=== PATIENT | male | born 1965 | race Caucasian/White ===

== ENCOUNTER 2020-09-23 07:47 | Emergency (ER) | payer OTHER, SELFPAY ==
[2020-09-23 08:05] VITALS: BP 144/91; PULSE 73; RESP 16; TEMP 36.9; O2SAT 98; BMI 27.4
--- NOTE | 2020-09-23 08:40 | XR_ITS ---
EXAMINATION: XR HIP, LEFT CLINICAL INFORMATION: Left hip pain. COMPARISON: None TECHNIQUE: Two views of the left hip. FINDINGS: Minimal left hip degenerative joint changes are seen. There is no acute fracture or dislocation. The soft tissues are unremarkable. XR/XR hip LT min 2V IMPRESSION: Minimal left hip degenerative joint changes. No acute abnormality.
--- NOTE | 2020-09-23 08:40 | XR_ITS ---
EXAMINATION: XR LUMBOSACRAL SPINE CLINICAL INFORMATION: Pain COMPARISON: None TECHNIQUE: Three views of the lumbosacral spine. FINDINGS: There may be a transitional vertebral body segment or 6 lumbar-type vertebral bodies. For the purposes of this dictation the first nonrib-bearing vertebral body is designated as L1 with the transitional segment inferiorly. There is curvature of the lumbar spine to the left. Bone alignment is otherwise normal. No fracture or dislocation is seen. There is evidence of degenerative disc disease at L1-L2. There is lower lumbar spine facet arthritis. Paraspinal soft tissues are unremarkable. XR/XR lumbar spine 2-3V IMPRESSION: Probable transitional vertebral body segment. Mild curvature of the spine to the left. Degenerative disc disease at L1-L2 and lower lumbar spine facet arthritis.
[2020-09-23] MEDS: Ketorolac Tromethamine 60 MG/2 ML VIAL IM (08:59)
--- NOTE | 2020-09-23 09:02 | ED.LOWEXIN ---
HPI - Extremity Injury (Lower) General Chief Complaint: Extremity Injury, Lower Stated Complaint: LEFT LEG PAIN Time Seen by Provider: 09/23/20 08:33 Source: patient and tube drawer Mode of arrival: ambulatory Limitations: language barrier History of Present Illness HPI Narrative: 54-year-old male here with left hip and low back pain with radiation down the left leg for 2 months. No injury or trauma. The patient tells me he has had 3 ED visits and has tried different medications but he does not know the names of them. He tells me he has seen his doctor once and is currently in physical therapy. He was feeling better until yesterday when he did some increased exercises and stretches physical therapy. Last evening he developed increasing pain and was unable to sleep through the night. He denies any numbness or tingling. The pain is worsened with weight-bearing and walking. He uses a cane at baseline. There was never any injury or trauma. Severity: moderate Relieving factors: nothing Exacerbating factors: nothing Other symptoms: none Related Data Previous Rx's Medication Instructions Recorded lidocaine [Lidoderm] 1 patch TOPICAL DAILY #15 ea 09/23/20 methocarbamol [Robaxin-750] 750 mg PO Q8H #20 tab 09/23/20 naproxen 500 mg PO BID PRN #30 tab 09/23/20 Allergies Allergy/AdvReac Type Severity Reaction Status Date / Time No Known Allergies Allergy Intermediate UNKNOWN Unverified 07/20/20 19:52 [NO KNOWN ALLERGIES] Review of Systems Review of Systems: Yes all other systems are reviewed and are negative Constitutional: Constitutional: Reports no additional constitutional complaints, Denies body ache(s), Denies chills, Denies fever(s), Denies headache(s) and Denies weakness Eyes: Eyes: Reports no additional eye complaints and Denies change in vision ENT: Reports system reviewed and no additional complaints, except as documented, Denies dizziness, Denies headache(s), Denies nasal congestion, Denies nasal discharge and Denies neck pain Cardiovascular: Cardiovascular: Reports no additional cardiovascular complaints, Denies chest pain, Denies leg edema and Denies dyspnea Respiratory: Respiratory: Reports no additional respiratory complaints, Denies cough and Denies dyspnea Gastrointestinal: Gastrointestinal: Reports no additional gastrointestinal complaints, Denies abdominal pain, Denies diarrhea, Denies nausea and Denies vomiting Genitourinary: Genitourinary: Denies urinary incontinence Musculoskeletal: Musculoskeletal: Reports no additional musculoskeletal complaints, Reports back pain, Denies arthralgias, Denies joint swelling, Denies neck pain, Denies numbness and Denies tingling Comments: Joint pain Integumentary/Breasts: Skin/Breast: Reports system reviewed and no additional complaints, except as docu and Denies rash Neurologic: Reports system reviewed and no additional complaints, except as documented, Denies Abnormal speech present, Denies dizziness, Denies headache(s), Denies numbness, Denies tingling and Denies weakness [facility] Past Medical History Attestation statement: The following information was validated with the patient. Source: obtained from family and nursing notes reviewed Medical History No known health problems Surgical History H/O hernia repair Social History Social History Advance Directives: No Advance Directives Information Provided: Yes Physical Exam Vital Signs: Vital Signs: Last Vital Signs Temp 98.4 F 09/23/20 08:05 Pulse 73 09/23/20 08:05 Resp 16 09/23/20 08:05 BP 144/91 H 09/23/20 08:05 Pulse Ox 98 09/23/20 08:05 Body Mass Index 27.4 Const: General: cooperative, healthy appearing, comfortable and no acute distress Orientation/consciousness: patient oriented x3 Limitations: no limitations HENMT: Head: Yes normal to inspection Ears: hearing grossly normal bilaterally General nose exam: Normal external nose present Face and sinus: Yes normal facial exam Mouth: Normal oral and palatal mucosa present Throat: Yes posterior oropharynx normal Eyes: General: appearance normal, both eyes and all related structures Pupils: Equal, round and reactive pupils present Neck: Neck: Yes normal visual inspection Chest: Chest palpation & inspection: normal inspection of the chest Resp: Effort & Inspection: normal respiratory effort Auscultation: clear to auscultation bilaterally Cardio: Rate: regular rate Rhythm: regular rhythm Peripheral pulses: Peripheral pulses 2+ throughout GI: Inspection: Yes normal to inspection Palpation (GI): Soft to palpation and nontender Auscultation: normal bowel sounds Back/Spine/Pelvis: Other: pain over the lumbar spine with no step-offs or deformities. Patient has pain over the left buttocks and left SI joint over the lateral left hip and buttocks. Pain is worsened with straight leg raise on the left side. Thoracic/Lumbar Spine: thoracic and lumbar spine normal to inspection Skin: General skin exam: no rashes or lesions noted Neuro: General: patient oriented x3, Normal light touch and pain sensation, no focal motor deficits and normal sensation to monofilament Cranial nerves: Yes CN's II-XII intact bilaterally and Yes Equal, round and reactive pupils present Cognition (Neuro): normal cognition Speech: No Abnormal speech present Gait exam (Neuro): Normal gait present Motor exam (neuro): 5/5 motor strength present throughout Sensory Exam: Normal double simultaneous stimulation for sensation Deep tendon reflexes (DTR's): Right patellar reflex intensity grade: 2+, Left patellar reflex intensity grade: 2+, Right ankle reflex intensity grade: 2+ and Left ankle reflex intensity grade: 2+ Extrem: General: Yes normal to inspection Course Course Course Narrative: Will check imaging, provide analgesia and reassess. 1000- imaging consistent with a likely slipped versus herniated disc. No neurological deficits or red flag symptoms. The patient is ambulatory and feeling improved after IM Toradol. He can follow-up outpatient with his primary care doctor and Orthopedics. Reviewed worrisome signs and symptoms and when to return to the emergency department. Comfortable with discharge home. MDM - Extremity Injury (Lower) Imaging Data lumbar xray: Radiologist's impression: FINDINGS: There may be a transitional vertebral body segment or 6 lumbar-type vertebral bodies. For the purposes of this dictation the first nonrib-bearing vertebral body is designated as L1 with the transitional segment inferiorly. There is curvature of the lumbar spine to the left. Bone alignment is otherwise normal. No fracture or dislocation is seen. There is evidence of degenerative disc disease at L1-L2. There is lower lumbar spine facet arthritis. Paraspinal soft tissues are unremarkable. XR/XR lumbar spine 2-3V IMPRESSION: Probable transitional vertebral body segment. Mild curvature of the spine to the left. Degenerative disc disease at L1-L2 and lower lumbar spine facet arthritis. hip xray: Attestation: I personally reviewed and interpreted this imaging study as follows: Radiologist's impression: EXAMINATION: XR HIP, LEFT CLINICAL INFORMATION: Left hip pain. COMPARISON: None TECHNIQUE: Two views of the left hip. FINDINGS: Minimal left hip degenerative joint changes are seen. There is no acute fracture or dislocation. The soft tissues are unremarkable. XR/XR hip LT min 2V IMPRESSION: Minimal left hip degenerative joint changes. No acute abnormality. Discharge Plan Discharge Clinical Impression: Lumbar strain, Arthritis Patient Disposition: Home, Self-Care Instructions: Lumbar Disc Herniation (ED), Lower Back Exercises (ED), Arthritis (ED) Prescriptions: New naproxen 500 mg tablet 500 mg PO BID PRN (Reason: pain) Qty: 30 RF: 0 methocarbamol [Robaxin-750] 750 mg tablet 750 mg PO Q8H Qty: 20 RF: 0 lidocaine [Lidoderm] 5 % adhesive patch,medicated 1 patch topical DAILY Qty: 15 RF: 0 Referrals: Chema Britt MD [Physician] - 2 days Physician,Unknown [Primary Care Provider] - 2 days Stand Alone Forms: Work/School Release Interventions: ED Discharge Assessment Last Done: 09/23/20 10:06 Discharge Date/Time: 09/23/20 10:08 Print Language: Sierra Leonean
== END 2020-09-23 10:08 | disposition home or self-care (01) ==
PROVIDERS: Emergency Provider Emergency Medicine
DX: S39.012A Strain of muscle, fascia and tendon of lower back, initial encounter (principal); M47.896 Other spondylosis, lumbar region; M25.552 Pain in left hip; M79.605 Pain in left leg; X58.XXXA Exposure to other specified factors, initial encounter; Y93.9 Activity, unspecified; Y92.89 Other specified places as the place of occurrence of the external cause; Y99.9 Unspecified external cause status; Z79.899 Other long term (current) drug therapy
CPT/HCPCS: 72100; 73502; 96372; 99283; 99284; J1885

== ENCOUNTER → 2020-10-10 14:09 | Outpatient (BNVA) | payer OTHER, SELFPAY | PROVIDERS: Visit Provider Physician Assistant | DX: M53.3 Sacrococcygeal disorders, not elsewhere classified (principal); G89.29 Other chronic pain | CPT/HCPCS: 99202 ==

== ENCOUNTER 2021-02-10 13:13 | Emergency (ER) | payer OTHER, SELFPAY ==
--- NOTE | 2021-02-10 13:53 | PC.NURSE ---
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
[2021-02-10 14:05] VITALS: BP 165/80; PULSE 75; RESP 14; TEMP 36.7; O2SAT 97; BMI 23.6
--- NOTE | 2021-02-10 14:36 | ED_ITS ---
HPI - Animal Bite General Chief Complaint: Skin/Abscess/Foreign Body Stated Complaint: bug bites Time Seen by Provider: 02/10/21 14:02 Source: patient Mode of arrival: ambulatory Limitations: language barrier (Senegalese-speaking) History of Present Illness HPI narrative: 55-year-old male presenting to the ED with complaints of 2 tick bites that he sustained at work on Friday. He reports that his co-worker seen the tick on his right trunk area and removed it immediately. Then he went home and when he took a shower he noticed he had another tick to the left axillary therefore he pulled it out completely. He reports he has mild erythema otherwise denies any additional complaints or concerns at this time. Related Data Previous Rx's Medication Instructions Recorded lidocaine [Lidoderm] 1 patch TOPICAL DAILY #15 ea 09/23/20 methocarbamol [Robaxin-750] 750 mg PO Q8H #20 tab 09/23/20 naproxen 500 mg PO BID PRN #30 tab 09/23/20 doxycycline monohydrate 100 mg PO BID 21 Days #42 cap 02/10/21 Allergies Allergy/AdvReac Type Severity Reaction Status Date / Time No Known Allergies Allergy Intermediate UNKNOWN Unverified 07/20/20 19:52 [NO KNOWN ALLERGIES] Review of Systems Review of Systems: Constitutional : No Fever, No Chills , no body aches, no recent illness Head/Face: No facial swelling, No facial redness ENT/Mouth : No oral/throat swelling, No Hoarseness, No Swallowing Difficulty Eyes: No Eye Pain, No Swelling, No Redness Cardiovascular : No Chest Pain, No SOB, No palpitations Respiratory : No Cough, No Sputum, No Wheezing, No Smoke Exposure, No Dyspnea Gastrointestinal : No Nausea, No Vomiting, No Diarrhea, No abdominal Pain Genitourinary : No Dysuria, No Urinary Frequency, No Hematuria Musculoskeletal : No joint pain, No Myalgias, No Joint Swelling Skin : positive Skin Lesions/tick bites, No rash Neuro : No Weakness, No Numbness, No Headache, No dizziness, No tingling Psych : No Anxiety/Panic, No Depression Heme/Lymph: No Bruising, No Lymphadenopathy Endocrine : No Polyuria, No Polydipsia Denies changes in lotions or detergents. Denies new medications or any changes in medications. Denies drainage from rash. Denies any recent sick contacts or recent travel. Yes all other systems are reviewed and are negative [facility] Past Medical History Attestation statement: The following information was validated with the patient. 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 Blood pressure hypertensive at 165/80. Heart rate normal. Respiration rate normal. Temperature normal. Oxygen saturation normal. Appearance: Alert. Oriented X3. No acute distress. Head: Normal external exam. Normocephalic. Atraumatic. Eyes: PERRLA. EOMI. Conjunctiva and sclera normal. Eyelids normal. ENT: Pharynx normal. Uvula midline. Moist mucous membranes. Neck: Normal inspection. Neck supple. FROM. No adenopathy. Thyroid Normal. No meningeal signs. CVS: Normal heart rate and rhythm. Pulses normal throughout. Respiratory: No respiratory distress. Painless inspiration. Back: Full range of motion noted. Skin: lesion c mild surrounding erythema to right truck and left axillary. No streaking/induration/fluctuance or foreign bodies or tics noted at this time. Otherwise the rest of the Skin is warm and dry. Normal skin color. Normal skin turgor. No rashes/lacerations noted. Extremities: Extremities exhibit normal range of motion. Extremities nontender. Neuro: Oriented X 3. No motor deficit. No sensory deficit. Reflexes normal. Course Course Course Narrative: 55-year-old male with 2 tick bites. No strea jodi/induration/fluctuance or tics noted at this time. Will DC home with antibiotics and instructions to return if any new or worsening symptoms follow- up with primary care provider. MDM - Animal Bite Medical Records Attestation: I reviewed the patient's medical records. Discharge Plan Discharge Clinical Impression: Tick bite Patient Disposition: Home, Self-Care Instructions: Tick Bite (ED) Prescriptions: New doxycycline monohydrate 100 mg capsule 100 mg PO BID 21 Days Qty: 42 RF: 0 No Action naproxen 500 mg tablet 500 mg PO BID PRN (Reason: pain) Qty: 30 RF: 0 methocarbamol [Robaxin-750] 750 mg tablet 750 mg PO Q8H Qty: 20 RF: 0 lidocaine [Lidoderm] 5 % adhesive patch,medicated 1 patch topical DAILY Qty: 15 RF: 0 Referrals: Luisa Unger MD [Primary Care Provider] - 2 days Discharge Date/Time: 02/10/21 14:44 Print Language: Senegalese
== END 2021-02-10 14:44 | disposition home or self-care (01) ==
PROVIDERS: Emergency Provider Emergency Medicine Emergency Medical Services; PCP Internal Medicine
DX: S20.361A Insect bite (nonvenomous) of right front wall of thorax, initial encounter (principal); S40.861A Insect bite (nonvenomous) of right upper arm, initial encounter; W57.XXXA Bitten or stung by nonvenomous insect and other nonvenomous arthropods, initial encounter; F17.200 Nicotine dependence, unspecified, uncomplicated; F12.90 Cannabis use, unspecified, uncomplicated; Y93.89 Activity, other specified; Y92.017 Garden or yard in single-family (private) house as the place of occurrence of the external cause; Y99.0 Civilian activity done for income or pay
CPT/HCPCS: 99283

== ENCOUNTER 2022-09-25 09:33 | Emergency (ER) | payer OTHER, SELFPAY ==
--- NOTE | ~2022-09-25 | XR_ITS ---
EXAMINATION: XR LUMBOSACRAL SPINE CLINICAL INFORMATION: Back pain. COMPARISON: 09/23/[address] scan of the abdomen and pelvis dated 05/14/2020 TECHNIQUE: Three views of the lumbosacral spine. 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 A rudimentary disc is seen at L5-S1. Mild degenerative disc disease and mild grade 1 anterolisthesis are seen without significant change. Sclerotic changes in the superior endplate of L1 is again noted. XR/XR lumbar spine 2-3V IMPRESSION: Transitional anatomy and mild degenerative changes as detailed above without overt acute abnormality or significant change.
[2022-09-25 09:35] VITALS: BP 153/98; PULSE 78; RESP 20; TEMP 36.6; O2SAT 95; BMI 25.7
--- NOTE | 2022-09-25 10:11 | ED_ITS ---
HPI - Back Pain/Injury General Chief Complaint: Back Pain/Injury Stated Complaint: L Leg Pain No Injury Time Seen by Provider: 09/25/22 09:40 Source: patient Mode of arrival: ambulatory Limitations: language barrier (Belarusian-speaking) History of Present Illness HPI Narrative: 56-year-old male who is Bel[place]ian-speaking with a past medical history of chronic back pain/left hip arthritis who has been here in the past for similar complaints and has followed up orthopedic ARIANNA Roberts who is presenting to the emergency department with complaints of acute on chronic lower back/left lower back pain left hip pain radiating to his left leg since yesterday worse today. Reports that he normally takes naproxen and Robaxin and that helps his pain although reports he ran out of the naproxen Robaxin. He denies any recent falls, fevers, chest pain or shortness of breath, abdominal pain, flank pain, dysuria, hematuria, abnormal penile discharge, black or bloody stools, urinary bowel incontinence or retention, saddle anesthesias, IV drug use, recent travel or sick contacts or epidural procedures or any other symptoms complaints or concerns at this time. MD elicited complaint: back pain Pertinent past history: prior back pain and arthritis Onset (ago): day(s) Timing: intermittent Severity: moderate Similar Symptoms Previously: Yes Quality: aching, spasming and throbbing Location: lumbar spine Radiation: left leg below the knee Exacerbating factors: supine positioning, sitting upright, walking and lifting Relieving factors: medication Context: unknown Associated symptoms: denies other symptoms Treatments prior to arrival: other Work related injury: No Related Data Previous Rx's Medication Instructions Recorded lidocaine 5 % topical patch 1 patch topical DAILY #15 ea 09/23/20 (Lidoderm) methocarbamol 750 mg tablet 750 mg PO Q8H #20 tabs 09/23/20 (Robaxin-750) naproxen 500 mg tablet 500 mg PO BID PRN pain #30 tabs 09/23/20 doxycycline monohydrate 100 mg 100 mg PO BID 21 days #42 caps 02/10/21 capsule lidocaine 5 % topical patch 1 patch topical DAILY pain #15 ea 09/25/22 (Lidoderm) methocarbamol 750 mg tablet 750 mg PO Q8H #20 tabs 09/25/22 naproxen 500 mg tablet 500 mg PO BID PRN pain #20 tabs 09/25/22 Allergies Allergy/AdvReac Type Severity Reaction Status Date / Time No Known Allergies Allergy Intermediate UNKNOWN Unverified 07/20/20 19:52 [NO KNOWN ALLERGIES] Review of Systems Review of Systems: Constitutional : No trauma, No Weight loss, No Fever, No Chills, ENT/Mouth : No Hearing loss, No Ear Pain, No Nasal Congestion, No Sinus Pain, No Hoarseness, No sore throat, No Rhinorrhea, No Swallowing Difficulty Cardiovascular : No Chest Pain, No SOB Respiratory : No Cough, No Dyspnea Gastrointestinal : No Nausea, No Vomiting, No Diarrhea, No abdominal Pain, No Hematochezia, No Melena Genitourinary : No Dysuria, No Urinary Frequency, No Hematuria, No Urinary or Bowel Incontinence/retention Musculoskeletal : + Back pain, No neck pain, No joint stiffness, No joint swelling Skin : No Skin Lesions, No rash or signs of infection Neuro : No Weakness, + to LLE radiation, No Numbness, No Paresthesias, No headache, no loss of bowel or bladder incontinence, no saddle anesthesia Denies history of IV drug usage. Yes all other systems are reviewed and are negative PMFSH Past Medical History Attestation statement: The following information was validated with the patient. 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 Blood pressure 153/98. Heart rate normal. Respiration rate normal. Temperature normal. Oxygen saturation normal. Appearance: Alert. Oriented X3. No acute distress. Head: Normal external exam. Normocephalic. Atraumatic. Eyes: PERRLA. EOMI. Conjunctiva and sclera normal. Eyelids normal. ENT: Pharynx normal. Uvula midline. Moist mucous membranes. No trismus noted. No drooling noted. No muffled voice noted. Neck: Normal inspection. Neck supple. FROM. No adenopathy. Thyroid Normal. No meningeal signs. No neck mass noted. CVS: Normal heart rate and rhythm Respiratory: No respiratory distress. Painless inspiration. No accessory muscle usage noted Abdomen: Soft and nontender. No distention noted. No organomegaly noted Back: No CVA tenderness. Full range of motion noted. No obvious deformities, or edema. Mild para-spinal muscular tenderness from lumbar region to coccyx. Full ROM in back and lower extremities. 5/5 strength hip extension/flexion, abduction, adduction. Mild Lumbar pain with hip flexion against resistance. Straight leg raise test negative on right; Straight leg raise test positive on left; EHL motor strength normal bilaterally. No rashes/lesion/induration/fluctuance or signs infection noted. Skin: Skin warm and dry. Normal skin color. Normal skin turgor. No rashes/lesions/lacerations noted. Extremities: No lower extremity edema. Extremities exhibit normal range of motion. Extremities nontender. Neuro: Oriented X 3. No motor deficit. No sensory deficit. Reflexes normal. Patient has a normal steady gait. Course Course Course Narrative: Pt c likely muscular pain, but could be herniated disc. Neuro exam shows no deficits. Not c/w AAA/epidural abscess/dissection. No high risk Hx (Incont, fever, immunosupp, recent surgery/LP, coag, signif trauma, wt loss, puls mass, hx/o Ca, TB, or IVDU) to warrant MRI/CT today. Not c/w Pyelo/UTI/kidney stone/spinal fx. Not cauda equina syndrome. X-ray was ordered in triage. Otherwise no additional x-rays or imaging or labs indicated. If x-ray reveals arthritis which was seen in the last x-ray patient can be DC c meds and f/u. MDM - Back Pain/Injury Medical Records Attestation: I reviewed the patient's medical records. 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 A rudimentary disc is seen at L5-S1. Mild degenerative disc disease and mild grade 1 anterolisthesis are seen without significant change. Sclerotic changes in the superior endplate of L1 is again noted. XR/XR lumbar spine 2-3V IMPRESSION: Transitional anatomy and mild degenerative changes as detailed above without overt acute abnormality or significant change. Discharge Plan Discharge Clinical Impression: Lumbar radiculopathy, Chronic SI joint pain Patient Disposition: Home, Self-Care Instructions: Lower Back Exercises (ED) Prescriptions: New naproxen 500 mg tablet 500 mg PO BID PRN (Reason: pain) Qty: 20 0RF methocarbamol 750 mg tablet 750 mg PO Q8H Qty: 20 0RF lidocaine [Lidoderm] 5 % adhesive patch,medicated 1 patch topical DAILY Qty: 15 0RF Rx Instructions: leave on most painful area for up to 12 hrs. May be substituted No Action naproxen 500 mg tablet 500 mg PO BID PRN (Reason: pain) Qty: 30 0RF methocarbamol [Robaxin-750] 750 mg tablet 750 mg PO Q8H Qty: 20 0RF lidocaine [Lidoderm] 5 % adhesive patch,medicated 1 patch topical DAILY Qty: 15 0RF Rx Instructions: leave on most painful area for up to 12 hrs doxycycline monohydrate 100 mg capsule 100 mg PO BID 21 Days Qty: 42 0RF Referrals: Physician,Unknown J [Primary Care Provider] - 3 days (your pcp) Stand Alone Forms: Work/School Release Interventions: ED Discharge Assessment Last Done: 09/25/22 10:45 Discharge Date/Time: 09/25/22 10:46 Print Language: Belarusian
== END 2022-09-25 10:46 | disposition home or self-care (01) ==
PROVIDERS: Emergency Provider Emergency Medicine
DX: M54.16 Radiculopathy, lumbar region (principal); Z79.899 Other long term (current) drug therapy
CPT/HCPCS: 72100; 99283